=== PATIENT | female | born 1950 | race Caucasian/White ===

== ENCOUNTER 2025-02-21 07:09 | Day surgery (SDC) | payer MEDICARE, OTHER ==
[2025-02-21 07:40] LABS: PLATELET COUNT,PLT 242.0 K/uL (130-375); RED BLOOD CELL COUNT 4.99 M/uL (3.77-5.24); WHITE BLOOD CELL COUNT,WBC 8.0 K/uL (3.2-11.0)
[2025-02-21] MEDS: Scopalamine 1mg/3day Transdermal Patch TOP SCH (07:42)
[2025-02-21 08:07] LABS: A/G RATIO 1.0 (1.2-2.2); ALANINE AMINOTRANSFERASE,ALT 30 U/L (12-78); ASPARTATE AMNIOTRANSFERASE,AST 21 U/L (15-37); BILIRUBIN TOTAL 0.5 mg/dL (0.2-1.0); BLOOD UREA NITROGEN,BUN 17 mg/dL (7-18); CARBON DIOXIDE,CO2 32 mmol/L (21-32); CHLORIDE,CL 101 mmol/L (100-108); CREATININE 0.9 mg/dL (0.6-1.0); EST CRCL DRUG DOSING (CG) 46.74 mL/min; ESTIMATED GFR 68 mL/min (>60); GLUCOSE RANDOM 215 mg/dL (74-106); POTASSIUM,K 3.6 mmol/L (3.6-5.2); PROTEIN TOTAL,TP 7.7 g/dL (6.4-8.2); SODIUM,NA 139 mmol/L (140-148)
[2025-02-21] MEDS: Nozin Nasal Sanitizer NASBOTH SCH ×2 (08:08→21:13)
[2025-02-21] MEDS: Lactated Ringers 1,000 ML IV SCH (08:29)
[2025-02-21] MEDS ORDERED: Propofol 200 MG/20 ML SDV ONE ×2 (08:33→10:06)
[2025-02-21] MEDS ORDERED: fentaNYL 100 MCG/2 ML SDV ONE ×2 (08:33→10:07)
[2025-02-21] MEDS ORDERED: Midazolam 1 MG/ML 2 ML SDV ONE (08:33)
[2025-02-21] MEDS: Tranexamic Acid 820 MG in Sodium Chloride 0.9% 50 ML IV ONE (10:10)
[2025-02-21] MEDS ORDERED: ePHEDrine 50 MG/ML SDV ONE (10:40)
[2025-02-21] MEDS ORDERED: Ondansetron 4 MG/2 ML SDV ONE (11:31)
[2025-02-21] MEDS: Ondansetron 4 MG/2 ML SDV IVPUSH PRN (12:47)
[2025-02-21] MEDS: SCOPOLAMINE PATCH CHECK TOP SCH (13:26)
[2025-02-21] MEDS: Ketorolac 15 MG/ML SDV IVPUSH PRN (13:29)
[2025-02-21] MEDS: Insulin Lispro 100 Unit/ML 3 ML KwikPen SUBCUT SCH (17:28)
[2025-02-21] MEDS: Insulin Glargine,Human Rec. Analog 100 Units/ML 3 ML Pen SUBCUT SCH (21:14)
[2025-02-22 05:52] LABS: PLATELET COUNT,PLT 186.0 K/uL (130-375); RED BLOOD CELL COUNT 3.87 M/uL (3.77-5.24); WHITE BLOOD CELL COUNT,WBC 7.1 K/uL (3.2-11.0)
[2025-02-22] MEDS: Cholecalciferol (Vitamin D3) 25 MCG Tab PO SCH (08:45)
[2025-02-22] MEDS: Cyanocobalamin (Vitamin B12) 1,000 MCG Tab PO SCH (08:46)
[2025-02-22] MEDS: Aspirin 325 MG Tab.EC PO SCH (08:46)
[2025-02-22] MEDS: Multivitamins with Iron/Calcium/Folic Acid/Minerals Tab PO SCH (08:46)
[2025-02-22] MEDS ORDERED: ECHINACEA PO SCH (09:00)
== END 2025-02-22 15:45 | disposition home or self-care (01) ==
LOC: JP.SDS 07:09 → JP.2SS 09:12 → JP.SDS 02-22 15:45
PROVIDERS: ATTEND Specialist
DX: M16.11 Unilateral primary osteoarthritis, right hip (principal); M24.151 Other articular cartilage disorders, right hip; I10 Essential (primary) hypertension; E11.9 Type 2 diabetes mellitus without complications; Z88.8 Allergy status to other drugs, medicaments and biological substances; Z79.4 Long term (current) use of insulin; Z79.84 Long term (current) use of oral hypoglycemic drugs; Z79.899 Other long term (current) drug therapy
CPT/HCPCS: 20985; 27130; 36415; 72170; 80053; 82947; 85027; 93005; 93010; 97110; 97116; 97161; 97165; 97530; A4217; A9270; C1713; C1776; J0690; J1815; J1885; J2250; J2405; J2704; J3010; J7030; J7120; 01214-QZ; J0665